=== PATIENT | female | born 1940 | race Caucasian/White ===

== ENCOUNTER 2023-07-15 09:48 | Outpatient (CLI) | payer OTHER ==
[~2023-07-15 09:48] MED LIST: CATAFLAM50 MG PO; CIPRO500 MG PO; FLAGYL500MG PO; INTESTINEX1 CAP PO; PROTONIX40 MG PO
== END 2023-07-15 09:50 | disposition home or self-care (01) ==
LOC: SONOGRAMA 09:48
PROVIDERS: ATTEND Pathology Anatomic Pathology & Clinical Pathology
DX: E04.2 Nontoxic multinodular goiter (principal)